=== PATIENT | female | born 1980 | race Caucasian/White ===

== ENCOUNTER 2017-02-24 18:39 | Emergency (ER) | payer OTHER ==
--- NOTE | 2017-02-24 19:19 | EDM.PDOC ---
ED HPI GENERAL MEDICAL PROBLEM - General Chief Complaint: Genitourinary Problem Stated Complaint: UNK Time Seen by Provider: 02/24/17 19:01 - History of Present Illness INITIAL COMMENTS - FREE TEXT/NARRATIVE: HISTORY AND PHYSICAL: History of present illness: The patient is a 36-year-old female who presents with complaints of vaginal discharge that started today and a history of bacterial vaginosis. Patient lives in [place] and is traveling here and will not be going home until April and does not have a local provider. The patient says she has had a bilateral tubal ligation as well as a cervical ablation and denies . Patient has no systemic complaints of fever chills abdominal pain nausea or vomiting and has had normal bowel movements. Patient has no urinary complaints. Patient is not concerned about STDs but said that she would be happy to be tested. Patient says that sometimes when she has intercourse it will "throw off her vaginal pH" and she gets a discharge which is malodorous. She has no pain in her vagina or pelvis area Review of systems: As per history of present illness and below otherwise all systems reviewed and negative. Past medical history: As per history of present illness and as reviewed below otherwise noncontributory. Surgical history: As per history of present illness and as reviewed below otherwise noncontributory. Social history: No reported history of drug or alcohol abuse. Family history: As per history of present illness and as reviewed below otherwise noncontributory. Physical exam: Gen.: Well-developed well-nourished overweight female who is nontoxic and speaking clearly and easily in the ED. Vital signs have been noted by me HEENT: Atraumatic, normocephalic, negative for conjunctival pallor or scleral icterus, mucous membranes moist, throat clear, neck supple, nontender, trachea midline. Lungs: Clear to auscultation, breath sounds equal bilaterally, chest nontender. Heart: S1S2, regular rate and rhythm no overt murmurs Abdomen: Soft, nondistended, nontender. Negative for masses or hepatosplenomegaly. Negative for costovertebral tenderness. Pelvis: External genitalia are within normal limits, there is scant clear drainage seen in the vaginal vault, cervix is nulliparous and there is no cervical motion tenderness or friability, and bimanual exam uterus is small nontender non-bulky and adnexa are within normal limits. Genitourinary: Deferred. Rectal: Deferred. Extremities: Atraumatic, negative for cords or calf pain. Neurovascular unremarkable. Neuro: Awake, alert, oriented. Cranial nerves II through XII unremarkable. Cerebellum unremarkable. Motor and sensory unremarkable throughout. Exam nonfocal. Diagnostics: UA urine for gonorrhea and chlamydia, urine culture if indicated, wet prep for trichomonas yeast and bacterial vaginosis Therapeutics: The patient is aware of all testing results and need for follow-up with the symptoms persist. Impression: Vaginal discharge Definitive disposition and diagnosis as appropriate pending reevaluation and review of above. - Related Data Allergies Allergy/AdvReac Type Severity Reaction Status Date / Time metoclopramide [From Reglan] Allergy Anxiety Verified 02/24/17 18:51 topiramate [From Topamax] Allergy Agitation Verified 02/24/17 18:51 Home Meds: Home Meds Albuterol [Proventil HFA] 6.7 gm INH BID PRN 02/24/17 [History] Budesonide/Formoterol Fumarate [Symbicort 160-4.5 Mcg Inhaler] 1 inh IN BID PRN 02/24/17 [History] Gabapentin [Gralise] 600 mg PO DAILY 02/24/17 [History] Montelukast [Singulair] 0 mg PO DAILY 02/24/17 [History] Omeprazole Magnesium [Prilosec Otc] 1 cap PO DAILY 02/24/17 [History] Ranitidine [Zantac] 0 mg PO DAILY 02/24/17 [History] metFORMIN [Glucophage] 850 mg PO BIDMEALS 02/24/17 [History] ED ROS GENERAL - Review of Systems Review Of Systems: ROS reveals no pertinent complaints other than HPI. ED EXAM, GENERAL - Physical Exam Exam: See Below (See dictation) Course - Vital Signs Last Recorded V/S: Last Vital Signs Temp 36.4 C 02/24/17 18:50 Pulse 80 02/24/17 18:50 Resp 18 02/24/17 18:50 BP 154/84 H 02/24/17 18:50 Pulse Ox 96 02/24/17 18:50 - Orders/Labs/Meds Orders: Active Orders 24 hr Category Date Time Status CHLAMYDIA AND GONORRHEA BY TMA Stat Lab 02/24/17 19:18 Received Labs: Laboratory Tests 02/24/17 02/24/17 Range/Units 19:18 19:18 Urine Color YELLOW Urine Appearance CLEAR Urine pH 6.0 (5.0-8.0) Ur Specific [place] >= 1.030 (1.001-1.035) Urine Protein NEGATIVE (NEGATIVE) mg/dL Urine Glucose (UA) NEGATIVE (NEGATIVE) mg/dL Urine Ketones NEGATIVE (NEGATIVE) mg/dL Urine Occult Blood NEGATIVE (NEGATIVE) Urine Nitrite NEGATIVE (NEGATIVE) Urine Bilirubin NEGATIVE (NEGATIVE) Urine Urobilinogen 0.2 (<2.0) EU/dL Ur Leukocyte Esterase NEGATIVE (NEGATIVE) Urine RBC 0-1 (0-2/HPF) Urine WBC 0-1 (0-5/HPF) Ur Epithelial Cells OCCASIONAL (NONE-FEW) Urine Bacteria RARE (NEGATIVE) Bebe species DNA NEGATIVE (NEGATIVE) Gardnerella DNA Probe NEGATIVE (NEGATIVE) Trichomonas DNA Probe NEGATIVE (NEGATIVE) Departure - Departure Time of Disposition: 20:26 Disposition: Home, Self-Care 01 Condition: Good Clinical Impression: Vaginal discharge - Discharge Information Referrals: PCP,None [Primary Care Provider] - Forms: ED Department Discharge Additional Instructions: The following information is given to patients seen in the emergency department who are being discharged to home. This information is to outline your options for follow-up care. We provide all patients seen in our emergency department with a follow-up referral. The need for follow-up, as well as the timing and circumstances, are variable depending upon the specifics of your emergency department visit. If you don't have a primary care physician on staff, we will provide you with a referral. We always advise you to contact your personal physician following an emergency department visit to inform them of the circumstance of the visit and for follow-up with them and/or the need for any referrals to a consulting specialist. The emergency department will also refer you to a specialist when appropriate. This referral assures that you have the opportunity for followup care with a specialist. All of these measure are taken in an effort to provide you with optimal care, which includes your followup. Under all circumstances we always encourage you to contact your private physician who remains a resource for coordinating your care. When calling for followup care, please make the office aware that this follow-up is from your recent emergency room visit. If for any reason you are refused follow-up, please contact the [facility] emergency department at and ask to speak to the emergency department charge nurse. YAMILETH [facility] [address] [place], [place] [id number] Please monitor your symptoms and call our clinic and schedule follow-up appointment. Return to ER as needed and as discussed. Please try to push hydration more and avoid caffeinated products. The urine test was sent off to the lab and if the tests are positive we will contact you otherwise if we did not contact you they are negative - My Orders Last 24 Hours: My Active Orders 02/24/17 19:18 CHLAMYDIA AND GONORRHEA BY TMA Stat - Assessment/Plan Last 24 Hours: My Active Orders 02/24/17 19:18 CHLAMYDIA AND GONORRHEA BY TMA Stat
== END 2017-02-24 20:35 | disposition home or self-care (01) ==
LOC: MW.ED 18:39
DX: N89.8 Other specified noninflammatory disorders of vagina (principal); Z88.8 Allergy status to other drugs, medicaments and biological substances; Z79.84 Long term (current) use of oral hypoglycemic drugs; Z79.899 Other long term (current) drug therapy
CPT/HCPCS: 81001; 87480; 87491; 87510; 87591; 87660; 99283

== ENCOUNTER 2017-03-07 15:28 | Emergency (ER) | payer OTHER ==
[2017-03-07] MEDS ORDERED: LORazepam 2 MG/ML MDV IM ONE (16:07)
[2017-03-07] MEDS ORDERED: diphenhydrAMINE 50 MG/ML SDV IM ONE (16:08)
[2017-03-07] MEDS ORDERED: Prochlorperazine 10 MG Tab PO ONE (16:10)
[2017-03-07] MEDS ORDERED: Ketorolac 60 MG/2 ML SDV IM ONE (16:10)
--- NOTE | 2017-03-07 16:15 | EDM.PDOC ---
ED HPI GENERAL MEDICAL PROBLEM - General Chief Complaint: Headache Stated Complaint: MIGRAINE Time Seen by Provider: 03/07/17 16:11 Source of Information: Reports: Patient History Limitations: Reports: No Limitations - History of Present Illness INITIAL COMMENTS - FREE TEXT/NARRATIVE: HISTORY AND PHYSICAL: []36-year-old female presenting with migraine headache History of Present Illness: []Patient has had headaches since Wednesday she does have aura present she is on gabapentin to help prevent these She has been worked up by neurology in the past She did have aura yesterday awakened today and has gradually worsened throughout the day Review of Systems: As per history of present illness and below otherwise all systems reviewed and negative. Past medical history: As per history of present illness and as reviewed below otherwise noncontributory. Surgical history: As per history of present illness and as reviewed below otherwise noncontributory. Social history: No reported history of drug or alcohol abuse. Family history: As per history of present illness and as reviewed below otherwise noncontributory. Physical exam: Alert and oriented female answers questions appropriately no shortness breath noted she is photophobic mild nausea HEENT: Atraumatic, normocehpalic, pupils reactive, negative for conjunctival pallor or scleral icterus, mucous membranes moist, throat clear, neck supple, nontender, trachea midline. Lungs: Clear to auscultation, breath sounds equal bilaterally, chest non tender. Heart: S1S2, regular, negative for clicks, rubs, or JVD. Abdomen: Soft, nondistended, nontender. Negative for masses or hepatossplenmegaly. Negative for costovertebral tenderness. Pelvis: Stable nontender. Genitourinary: Deferred. Rectal: Deferred Extremities: Atraumatic, negative for cords or calf pain. Neurovascular unremarkable. Neuro: Awake, alert, oriented. Cranial nerves II through XII unremarkable. Cerebellum unremarkable. Motor and sensory unremarkable throughout. Exam nonfocal. Diagnostics: [] Therapeutics: [] Impression: [Migraine headache with aura] Plan: [Discharged to home Sleep Take Benadryl later tonight this is available [id number] Follow-up with your primary care provider or reevaluation Definitive disposition and diagnosis as appropriate pending reevaluation and review of above. Onset: Gradual Duration: Day(s): (3) Location: Reports: Head Quality: Reports: Same as Previous Episode Severity: Moderate Headache Pain Score (Numeric/FACES): 7 - Related Data Allergies Allergy/AdvReac Type Severity Reaction Status Date / Time metoclopramide [From Reglan] Allergy Anxiety Verified 03/07/17 15:54 topiramate [From Topamax] Allergy Agitation Verified 03/07/17 15:54 Home Meds: Home Meds Albuterol [Proventil HFA] 6.7 gm INH BID PRN 02/24/17 [History] Budesonide/Formoterol Fumarate [Symbicort 160-4.5 Mcg Inhaler] 1 inh IN BID PRN 02/24/17 [History] Gabapentin [Gralise] 600 mg PO DAILY 02/24/17 [History] Montelukast [Singulair] 0 mg PO DAILY 02/24/17 [History] Omeprazole Magnesium [Prilosec Otc] 1 cap PO DAILY 02/24/17 [History] Ranitidine [Zantac] 0 mg PO DAILY 02/24/17 [History] metFORMIN [Glucophage] 850 mg PO BIDMEALS 02/24/17 [History] Eletriptan [Relpax] 40 mg PO ASDIRECTED PRN 03/07/17 [History] Past Medical History - Past Health History Medical/Surgical History: Denies Medical/Surgical History Respiratory History: Reports: Asthma Gastrointestinal History: Reports: GERD Endocrine/Metabolic History: Reports: Diabetes, Type II - Past Surgical History GI Surgical History: Reports: Appendectomy, Cholecystectomy Female Surgical History: Reports: Tubal Ligation Dermatological Surgical History: Reports: Skin Graft Social & Family History - Family History Family Medical History: Noncontributory - Tobacco Use Smoking Status *Q: Never Smoker - Caffeine Use Caffeine Use: Reports: Coffee - Recreational Drug Use Recreational Drug Use: No ED ROS GENERAL - Review of Systems Review Of Systems: ROS reveals no pertinent complaints other than HPI. - Physical Exam Exam: See Below Course - Vital Signs Last Recorded V/S: Last Vital Signs Temp 37.6 C 03/07/17 15:52 Pulse 96 03/07/17 15:52 Resp 18 03/07/17 15:52 BP 165/92 H 03/07/17 15:52 Pulse Ox 99 03/07/17 15:52 - Orders/Labs/Meds Orders: Medication Orders Ketorolac Tromethamine (Toradol) 60 mg IM ONETIME ONE Stop: 03/07/17 16:11 Prochlorperazine Maleate (Compazine) 10 mg PO ONETIME ONE Stop: 03/07/17 16:11 Meds: Medications Generic Name Dose Route Start Last Admin Trade Name Freq PRN Reason Stop Dose Admin Prochlorperazine Maleate 10 mg 03/07/17 16:10 Compazine PO 03/07/17 16:11 ONETIME ONE Discontinued Medications Generic Name Dose Route Start Last Admin Trade Name Freq PRN Reason Stop Dose Admin Diphenhydramine HCl 50 mg 03/07/17 16:08 Benadryl IM 03/07/17 16:09 ONETIME ONE Ketorolac Tromethamine 60 mg 03/07/17 16:10 Toradol IM 03/07/17 16:11 ONETIME ONE Lorazepam 1 mg 03/07/17 16:07 Ativan IM 03/07/17 16:08 ONETIME ONE Departure - Departure Time of Disposition: 16:14 Disposition: Home, Self-Care 01 Condition: Good Clinical Impression: Migraine - Discharge Information Instructions: Recurrent Migraine Headache, [id number] Referrals: PCP,None [Primary Care Provider] - Additional Instructions: The following information is given to patients seen in the emergency department who are being discharged to home. This information is to outline your options for follow-up care. We provide all patients seen in our emergency department with a follow-up referral. The need for follow-up, as well as the timing and circumstances, are variable depending upon the specifics of your emergency department visit. If you don't have a primary care physician on staff, we will provide you with a referral. We always advise you to contact your personal physician following an emergency department visit to inform them of the circumstance of the visit and for follow-up with them and/or the need for any referrals to a consulting specialist. The emergency department will also refer you to a specialist when appropriate. This referral assures that you have the opportunity for followup care with a specialist. All of these measure are taken in an effort to provide you with optimal care, which includes your followup. Under all circumstances we always encourage you to contact your private physician who remains a resource for coordinating your care. When calling for followup care, please make the office aware that this follow-up is from your recent emergency room visit. If for any reason you are refused follow-up, please contact the [facility] emergency department at and asked to speak to the emergency department charge nurse. You have been found to have recurrent migraines Rest will help to make this better Please take some additional Benadryl later today Follow up with your neurologist
== END 2017-03-07 16:55 | disposition home or self-care (01) ==
LOC: MW.ED 15:28
DX: G43.109 Migraine with aura, not intractable, without status migrainosus (principal); E11.9 Type 2 diabetes mellitus without complications; Z88.8 Allergy status to other drugs, medicaments and biological substances; Z79.899 Other long term (current) drug therapy; Z79.84 Long term (current) use of oral hypoglycemic drugs
CPT/HCPCS: 96372; 99283; A9270; J1200; J1885; J2060

== ENCOUNTER 2017-06-26 20:03 | Emergency (ER) | payer OTHER ==
[2017-06-26] MEDS ORDERED: Sodium Chloride 0.9% 2.5 ML Syringe FLUSH PRN (20:58)
[2017-06-26] MEDS ORDERED: Sodium Chloride 0.9% 1,000 ML IV ONE (20:58)
[2017-06-26] MEDS ORDERED: Morphine 10 MG/ML Syringe IVPUSH ONE (20:58)
[2017-06-26] MEDS ORDERED: Ondansetron 4 MG/2 ML SDV IVPUSH ONE (20:58)
[2017-06-26] MEDS ORDERED: Sodium Chloride 0.9% 10 ML Syringe FLUSH PRN (20:58)
--- NOTE | 2017-06-26 21:02 | EDM.PDOC ---
ED HPI GENERAL MEDICAL PROBLEM - General Chief Complaint: Abdominal Pain Stated Complaint: ABDOMINAL PAIN Time Seen by Provider: 06/26/17 20:32 - History of Present Illness INITIAL COMMENTS - FREE TEXT/NARRATIVE: HISTORY AND PHYSICAL: History of present illness: The patient is a 37-year-old female with no GI history but a GI surgical history of cholecystectomy appendectomy and bilateral tube removal and cervical ablation who presents with diffuse abdominal pain and cramping bloatedness it's been ongoing for 1 week. She has had chills but no fever nausea but no vomiting and no diarrhea. She says she is more constipated than usual but she is passing stool. She has not taken anything for this discomfort she is not specifically burping more than usual. She has no history of acid reflux and does not live here and has a provider back in [place]. The patient says that the pain seems to be more in the upper abdomen today but she is very vague about it and says it does not localize right or left. She has no flank pain or urinary complaints. Review of systems: As per history of present illness and below otherwise all systems reviewed and negative. Past medical history: As per history of present illness and as reviewed below otherwise noncontributory. Surgical history: As per history of present illness and as reviewed below otherwise noncontributory. Social history: No reported history of drug or alcohol abuse. Family history: As per history of present illness and as reviewed below otherwise noncontributory. Physical exam: : Well-developed well-nourished female who is overweight nontoxic and vital signs are noted by me. HEENT: Atraumatic, normocephalic, pupils reactive, negative for conjunctival pallor or scleral icterus, mucous membranes moist, throat clear, neck supple, nontender, trachea midline. Lungs: Clear to auscultation, breath sounds equal bilaterally, chest nontender. Heart: S1S2, regular, negative for clicks, rubs, or JVD. Abdomen: Soft, nondistended, mild diffuse abdominal tenderness without rebound or guarding and bowel sounds are hypoactive Negative for masses or hepatosplenomegaly. Negative for costovertebral tenderness. Pelvis: Stable nontender. Genitourinary: Deferred. Rectal: Deferred. Extremities: Atraumatic, negative for cords or calf pain. Neurovascular unremarkable. Neuro: Awake, alert, oriented. Cranial nerves II through XII unremarkable. Cerebellum unremarkable. Motor and sensory unremarkable throughout. Exam nonfocal. Diagnostics: CBC CMP amylase lipase H. pylori UA, urine culture indicated, CT scan of the abdomen and pelvis Therapeutics: IV fluids Zofran morphine All testing results were discussed with the patient and I stressed the importance of need for follow-up back in [place] with her family doctor or with one of our clinic doctors. I will give her some Bentyl discomfort via [facility] Impression: Abdominal pain etiology unclear stable Definitive disposition and diagnosis as appropriate pending reevaluation and review of above. Abdomen Pain Score (Numeric/FACES): 6 - Related Data Allergies Allergy/AdvReac Type Severity Reaction Status Date / Time metoclopramide [From Reglan] Allergy Anxiety Verified 06/26/17 20:28 topiramate [From Topamax] Allergy Agitation Verified 06/26/17 20:28 Home Meds: Home Meds Albuterol [Proventil HFA] 6.7 gm INH BID PRN 02/24/17 [History] Budesonide/Formoterol Fumarate [Symbicort 160-4.5 Mcg Inhaler] 1 inh IN BID PRN 02/24/17 [History] Gabapentin [Gralise] 600 mg PO DAILY 02/24/17 [History] Montelukast [Singulair] 0 mg PO DAILY 02/24/17 [History] Omeprazole Magnesium [Prilosec Otc] 1 cap PO DAILY 02/24/17 [History] Ranitidine [Zantac] 0 mg PO DAILY 02/24/17 [History] metFORMIN [Glucophage] 850 mg PO BIDMEALS 02/24/17 [History] Eletriptan [Relpax] 40 mg PO ASDIRECTED PRN 03/07/17 [History] Past Medical History - Past Health History Medical/Surgical History: Denies Medical/Surgical History Respiratory History: Reports: Asthma Gastrointestinal History: Reports: GERD Endocrine/Metabolic History: Reports: Diabetes, Type II - Past Surgical History GI Surgical History: Reports: Appendectomy, Cholecystectomy Female Surgical History: Reports: Tubal Ligation Dermatological Surgical History: Reports: Skin Graft Social & Family History - Family History Family Medical History: Noncontributory - Tobacco Use Smoking Status *Q: Never Smoker Second Hand Smoke Exposure: No - Caffeine Use Caffeine Use: Reports: Coffee - Recreational Drug Use Recreational Drug Use: No ED ROS GENERAL - Review of Systems Review Of Systems: ROS reveals no pertinent complaints other than HPI. ED EXAM, GENERAL - Physical Exam Exam: See Below (See dictation) Course - Vital Signs Last Recorded V/S: Last Vital Signs Temp 36.1 C 06/26/17 20:26 Pulse 84 06/26/17 20:26 Resp 20 06/26/17 20:26 BP 134/79 06/26/17 20:26 Pulse Ox 95 06/26/17 20:26 - Orders/Labs/Meds Orders: Active Orders 24 hr Category Date Time Status Abdomen Pelvis w Cont [CT] Stat Exams 06/26/17 20:58 Taken UA W/MICROSCOPIC [URIN] Stat Lab 06/26/17 21:16 Ordered Sodium Chloride 0.9% [Saline Flush] Med 06/26/17 20:58 Active 10 ml FLUSH ASDIRECTED PRN Sodium Chloride 0.9% [Saline Flush] Med 06/26/17 20:58 Active 2.5 ml FLUSH ASDIRECTED PRN Saline Lock Insert [OM.PC] Stat Oth 06/26/17 20:57 Ordered Medication Orders Sodium Chloride (Saline Flush) 10 ml FLUSH ASDIRECTED PRN PRN Reason: Keep Vein Open Last Admin: 06/26/17 21:17 Dose: 10 ml Sodium Chloride (Saline Flush) 2.5 ml FLUSH ASDIRECTED PRN PRN Reason: Keep Vein Open Last Admin: 06/26/17 21:16 Dose: 2.5 ml Labs: Laboratory Tests 06/26/17 06/26/17 06/26/17 Range/Units 21:12 21:12 21:12 WBC 9.79 (4.0-11.0) K/uL RBC 4.50 (4.30-5.90) M/uL Hgb 12.8 (12.0-16.0) g/dL Hct 38.5 (36.0-46.0) % MCV 85.6 (80.0-98.0) fL MCH 28.4 (27.0-32.0) pg MCHC 33.2 (31.0-37.0) g/dL RDW Std Deviation 40.8 (28.0-62.0) fl RDW Coeff of William 13 (11.0-15.0) % Plt Count 285 (150-400) K/uL MPV 8.90 (7.40-12.00) fL Neut % (Auto) 58.6 (48.0-80.0) % Lymph % (Auto) 30.2 (16.0-40.0) % Henderson % (Auto) 8.1 (0.0-15.0) % Eos % (Auto) 3.0 (0.0-7.0) % Baso % (Auto) 0.1 (0.0-1.5) % Neut # (Auto) 5.7 (1.4-5.7) K/uL Lymph # (Auto) 3.0 H (0.6-2.4) K/uL Henderson # (Auto) 0.8 (0.0-0.8) K/uL Eos # (Auto) 0.3 (0.0-0.7) K/uL Baso # (Auto) 0.0 (0.0-0.1) K/uL Nucleated RBC % 0.0 /100WBC Nucleated RBCs # 0 K/uL Sodium 138 (136-145) mmol/L Potassium 3.6 (3.5-5.1) mmol/L Chloride 105 (98-107) mmol/L Carbon Dioxide 25.8 (21.0-32.0) mmol/L BUN 18 (7.0-18.0) mg/dL Creatinine 0.8 (0.6-1.0) mg/dL Est Cr Clr Drug Dosing 84.95 mL/min Estimated GFR (MDRD) > 60.0 ml/min Glucose 125 H (74-106) mg/dL Calcium 9.0 (8.5-10.1) mg/dL Total Bilirubin 0.3 (0.2-1.0) mg/dL AST 15 (15-37) IU/L ALT 27 (14-63) IU/L Alkaline Phosphatase 76 (46-116) U/L Total Protein 7.2 (6.4-8.2) g/dL Albumin 3.5 (3.4-5.0) g/dL Globulin 3.7 H (2.0-3.5) g/dL Albumin/Globulin Ratio 1.0 L (1.3-2.8) Amylase 23 L (25-115) U/L Lipase 95 (73-393) U/L Urine Color Urine Appearance Urine pH (5.0-8.0) Ur Specific [place] (1.001-1.035) Urine Protein (NEGATIVE) mg/dL Urine Glucose (UA) (NEGATIVE) mg/dL Urine Ketones (NEGATIVE) mg/dL Urine Occult Blood (NEGATIVE) Urine Nitrite (NEGATIVE) Urine Bilirubin (NEGATIVE) Urine Urobilinogen (<2.0) EU/dL Ur Leukocyte Esterase (NEGATIVE) Urine RBC (0-2/HPF) Urine WBC (0-5/HPF) Ur Epithelial Cells (NONE-FEW) Urine Bacteria (NEGATIVE) H. pylori IgG Antibody NEGATIVE (NEG) 06/26/17 Range/Units 21:16 WBC (4.0-11.0) K/uL RBC (4.30-5.90) M/uL Hgb (12.0-16.0) g/dL Hct (36.0-46.0) % MCV (80.0-98.0) fL MCH (27.0-32.0) pg MCHC (31.0-37.0) g/dL RDW Std Deviation (28.0-62.0) fl RDW Coeff of William (11.0-15.0) % Plt Count (150-400) K/uL MPV (7.40-12.00) fL Neut % (Auto) (48.0-80.0) % Lymph % (Auto) (16.0-40.0) % Henderson % (Auto) (0.0-15.0) % Eos % (Auto) (0.0-7.0) % Baso % (Auto) (0.0-1.5) % Neut # (Auto) (1.4-5.7) K/uL Lymph # (Auto) (0.6-2.4) K/uL Henderson # (Auto) (0.0-0.8) K/uL Eos # (Auto) (0.0-0.7) K/uL Baso # (Auto) (0.0-0.1) K/uL Nucleated RBC % /100WBC Nucleated RBCs # K/uL Sodium (136-145) mmol/L Potassium (3.5-5.1) mmol/L Chloride (98-107) mmol/L Carbon Dioxide (21.0-32.0) mmol/L BUN (7.0-18.0) mg/dL Creatinine (0.6-1.0) mg/dL Est Cr Clr Drug Dosing mL/min Estimated GFR (MDRD) ml/min Glucose (74-106) mg/dL Calcium (8.5-10.1) mg/dL Total Bilirubin (0.2-1.0) mg/dL AST (15-37) IU/L ALT (14-63) IU/L Alkaline Phosphatase (46-116) U/L Total Protein (6.4-8.2) g/dL Albumin (3.4-5.0) g/dL Globulin (2.0-3.5) g/dL Albumin/Globulin Ratio (1.3-2.8) Amylase (25-115) U/L Lipase (73-393) U/L Urine Color YELLOW Urine Appearance CLEAR Urine pH 5.5 (5.0-8.0) Ur Specific [place] >= 1.030 (1.001-1.035) Urine Protein NEGATIVE (NEGATIVE) mg/dL Urine Glucose (UA) NEGATIVE (NEGATIVE) mg/dL Urine Ketones TRACE H (NEGATIVE) mg/dL Urine Occult Blood NEGATIVE (NEGATIVE) Urine Nitrite NEGATIVE (NEGATIVE) Urine Bilirubin NEGATIVE (NEGATIVE) Urine Urobilinogen 0.2 (<2.0) EU/dL Ur Leukocyte Esterase NEGATIVE (NEGATIVE) Urine RBC 0-2 (0-2/HPF) Urine WBC 0-1 (0-5/HPF) Ur Epithelial Cells FEW (NONE-FEW) Urine Bacteria FEW (NEGATIVE) H. pylori IgG Antibody (NEG) Meds: Medications Generic Name Dose Route Start Last Admin Trade Name Freq PRN Reason Stop Dose Admin Sodium Chloride 10 ml 06/26/17 20:58 06/26/17 21:17 Saline Flush FLUSH 10 ml ASDIRECTED PRN Administration Keep Vein Open Sodium Chloride 2.5 ml 06/26/17 20:58 06/26/17 21:16 Saline Flush FLUSH 2.5 ml ASDIRECTED PRN Administration Keep Vein Open Discontinued Medications Generic Name Dose Route Start Last Admin Trade Name Freq PRN Reason Stop Dose Admin Sodium Chloride 1,000 mls @ 999 mls/hr 06/26/17 20:58 06/26/17 21:37 Normal Saline IV 06/26/17 21:58 999 mls/hr STAT ONE Administration Iopamidol 100 ml 06/26/17 23:04 06/26/17 23:05 Isovue-370 (76%) IVPUSH 06/26/17 23:05 100 ml ONETIME STA Administration Morphine Sulfate 4 mg 06/26/17 20:58 06/26/17 21:39 Morphine IVPUSH 06/26/17 20:59 4 mg ONETIME ONE Administration Ondansetron HCl 4 mg 06/26/17 20:58 06/26/17 21:38 Zofran IVPUSH 06/26/17 20:59 4 mg ONETIME ONE Administration Departure - Departure Time of Disposition: 23:39 Disposition: Home, Self-Care 01 Condition: Good Clinical Impression: Abdominal pain Qualifiers: Abdominal location: generalized Qualified Code(s): R10.84 - Generalized abdominal pain - Discharge Information Referrals: PCP,None [Primary Care Provider] - Forms: ED Department Discharge Additional Instructions: The following information is given to patients seen in the emergency department who are being discharged to home. This information is to outline your options for follow-up care. We provide all patients seen in our emergency department with a follow-up referral. The need for follow-up, as well as the timing and circumstances, are variable depending upon the specifics of your emergency department visit. If you don't have a primary care physician on staff, we will provide you with a referral. We always advise you to contact your personal physician following an emergency department visit to inform them of the circumstance of the visit and for follow-up with them and/or the need for any referrals to a consulting specialist. The emergency department will also refer you to a specialist when appropriate. This referral assures that you have the opportunity for followup care with a specialist. All of these measure are taken in an effort to provide you with optimal care, which includes your followup. Under all circumstances we always encourage you to contact your private physician who remains a resource for coordinating your care. When calling for followup care, please make the office aware that this follow-up is from your recent emergency room visit. If for any reason you are refused follow-up, please contact the [facility] emergency department at and ask to speak to the emergency department charge nurse. [facility] Primary care- Internal Medicine and [facility] [address] [place] [address] Please contact and follow-up with your provider at home in [place] or one of our clinic physicians on Wednesday morning. Use medications you have been prescribed, dicyclomine the [facility] Meds as needed. Push hydration and try to eat a bland nonfat diet. Try to avoid fast foods junk foods fatty foods and caffeinated products. Return to ER as needed and as discussed - My Orders Last 24 Hours: My Active Orders 06/26/17 20:57 Saline Lock Insert [OM.PC] Stat 06/26/17 20:58 Abdomen Pelvis w Cont [CT] Stat Sodium Chloride 0.9% [Saline Flush] 10 ml FLUSH ASDIRECTED PRN Sodium Chloride 0.9% [Saline Flush] 2.5 ml FLUSH ASDIRECTED PRN 06/26/17 21:16 UA W/MICROSCOPIC [URIN] Stat - Assessment/Plan Last 24 Hours: My Active Orders 06/26/17 20:57 Saline Lock Insert [OM.PC] Stat 06/26/17 20:58 Abdomen Pelvis w Cont [CT] Stat Sodium Chloride 0.9% [Saline Flush] 10 ml FLUSH ASDIRECTED PRN Sodium Chloride 0.9% [Saline Flush] 2.5 ml FLUSH ASDIRECTED PRN 06/26/17 21:16 UA W/MICROSCOPIC [URIN] Stat
[2017-06-26 21:44] LABS: CHLORIDE,CL 105 mmol/L (98-107); SODIUM,NA 138 mmol/L (136-145)
[2017-06-26] MEDS ORDERED: Iopamidol 755 Mg/ML 100 ML Bottle IVPUSH STA (23:04)
--- NOTE | 2017-06-28 19:51 | CT ---
EXAM DATE: 06/26/17 PATIENT'S AGE: 37 Patient: IVANIA MENDES Facility: [place], [place] Site . Site : 1980 Study: CT Abdomen/Pelvis [id number]/12/2018 10:58:08 PM Ordering Physician: Dutch Barrera Final Report: INDICATION: Abdominal Pain, Bloating TECHNIQUE: CT Abdomen and pelvis with i.v. contrast. Coronal and sagittal reformats were obtained. CONTRAST: 100 mL Isovue 370 COMPARISON: None FINDINGS: Lower chest: Unremarkable. Liver: Unremarkable. Spleen: Unremarkable. Pancreas: Unremarkable. Gallbladder: Previous cholecystectomy noted with mild expected intrahepatic and extrahepatic biliary ductal dilatation. Kidney: Unremarkable. No kidney or ureteral stones or obstruction seen. Adrenal: Unremarkable. Bowel: Unremarkable. The appendix is not visualized and likely surgically absent. Vascular: Unremarkable. Lymph: Unremarkable. Peritoneum: Unremarkable. No pneumoperitoneum is seen. Small amount of ascites is present and is likely physiologic in origin. Pelvis: Unremarkable. Soft tissue: Unremarkable. Bone: Unremarkable for age. IMPRESSION: 1. Unremarkable with no CT correlate for the patient`s symptoms seen. Dictated by Tico Figueroa MD @ 06/26/2017 11:32:39 PM Please note that all CT scans at this facility use dose modulation, iterative reconstruction, and/or weight-based dosing when appropriate to reduce radiation dose to as low as reasonably achievable. Dictated by: Tico Figueroa MD @ 06/26/2017 23:32:44 (Electronic Signature) Report Signed by Proxy. [facility]ENTERGlenda
== END 2017-06-26 23:50 | disposition home or self-care (01) ==
LOC: MW.ED 20:03
DX: R10.84 Generalized abdominal pain (principal); J45.909 Unspecified asthma, uncomplicated; E11.9 Type 2 diabetes mellitus without complications; Z88.8 Allergy status to other drugs, medicaments and biological substances; Z79.899 Other long term (current) drug therapy; Z79.84 Long term (current) use of oral hypoglycemic drugs
CPT/HCPCS: 36415; 74177; 80053; 81001; 82150; 83690; 85025; 86677; 96361; 96374; 96375; 99284; J2270; J2405; J7040; Q9967